=== PATIENT | male | born 1955 | race Caucasian/White ===

== ENCOUNTER 2023-08-09 12:56 | Observation (INO) | payer OTHER ==
--- OUTSIDE RECORDS SUMMARY | 2023-08-09 12:59 | XMS REPORT | Continuity of Care Document ---
Author Name Unknown Address [address] [place] [address] [address] [place] [address] [facility] Address [address] [facility] [address] [place] [address] Care Team Providers Care Aircraft Armorer Name Role Phone ANDREY Attending Clinician Unavailable ALEXANDRO Attending Clinician Unavailable Dixon Carias Attending Clinician [phone] Cezar_S_AH Attending Clinician Unavailable Aidan-Mbayo_A_AH Attending Clinician Unavailable ANTONIO_Gita Admitting Clinician Unavailable ALEXANDRO Admitting Clinician Unavailable Miller_S_AH Admitting Clinician Unavailable Aidan-Mbayo_A_AH Admitting Clinician Unavailable Payers Payer Name Policy Type Policy Number Effective Date Expirati on Date Source [employer] [place] (MEDICARE REPLACEMENT/ADVANT AGE - HMO) [id number] 2019 00:00:00 [employer] [place]IC[place] REPLACEMENT/ADVANT AGE - HMO) [id number] 2019 00:00:00 Problems Condition Name Condition Details Condition Category Status Onset Date Resolution Date Last Treatment Date Treating Clinician Comments Source Cataract Cataract Problem Active 2022-07 1-09 00:00: 00 [facility] Pain of right knee joint Pain of Right Knee Joint Problem Active 2022-07 0-31 00:00: 00 [facility] Prediabete s Prediabete s Problem Active 2022-07 0-24 00:00: 00 [facility] Nocturia due to benign prostatic hypertroph y Nocturia Due to Benign Prostatic Hypertroph y Problem Active 2020-07 0-15 00:00: 00 [facility] Mixed hyperlipid emia Mixed Hyperlipid emia Problem Active 4-05 00:00: 00 [facility] Type 2 diabetes mellitus without complicati on Type 2 Diabetes Mellitus without Complicati on Problem Active 2019-07 0 00:00: 00 [facility] Anxiety Anxiety Problem Active 2019-07 0 00:00: 00 [facility] Nicotine dependence Nicotine Dependence Problem Active 2019-07 0 00:00: 00 [facility] Essential hypertensi on Essential Hypertensi on Problem Active 2019-07 0 00:00: 00 [facility] Chronic obstructiv e lung disease Chronic Obstructiv e Lung Disease Problem Active 2019-07 0 00:00: 00 [facility] Mixed anxiety and depressive disorder Mixed Anxiety and Depressive Disorder Problem Active 9 00:00: 00 [facility] Essential hypertensi on Essential Hypertensi on Problem Active 12-26 00:00: 00 [facility] Diabetic peripheral neuropathy Diabetic Peripheral Neuropathy Problem Active 2018-07 00:00: 00 [facility] Chronic obstructiv e lung disease Chronic Obstructiv e Lung Disease Problem Active 2018-07 00:00: 00 [facility] Arthritis Arthritis Problem Active 2018-07 00:00: 00 [facility] Allergies, Adverse Reactions, Alerts Allergy Name Allergy Type Status Severity Reaction(s) Onset Date Inactive Date Treating Clinician Comments Source [facility] INS Allergy to substanc e Active [facility] Social History Smoking Status Start Date Stop Date Source Heavy Tobacco Smoker [facility] Light Tobacco Smoker [facility] Medications Ordered Medication Name Filled Medication Name Start Date Stop Date Current Medication? Ordering Clinician Indication Dosage Frequency Signature (SIG) Comments Components Source albuterol sulfate 2.5 mg/3 mL (0.083 %) solution for nebulizatio n INHALE 2.5 MG (1 VIAL) 4 TIMES A DAY BY NEBULIZATIO N ROUTE NEEDED. albuterol sulfate 2.5 mg/3 mL (0.083 %) solution for nebulizatio n INHALE 2.5 MG (1 VIAL) 4 TIMES A DAY BY NEBULIZATIO N ROUTE NEEDED. No albuterol sulfate 2.5 mg/3 mL (0.083 %) solution for nebulizati on INHALE 2.5 MG (1 VIAL) 4 TIMES A DAY BY NEBULIZATI ON ROUTE NEEDED. [facility] albuterol sulfate HFA 90 mcg/actuati on aerosol inhaler INHALE 2 PUFFS BY MOUTH EVERY 6 HOURS NEEDED albuterol sulfate HFA 90 mcg/actuati on aerosol inhaler INHALE 2 PUFFS BY MOUTH EVERY 6 HOURS NEEDED No albuterol sulfate HFA 90 mcg/actuat ion aerosol inhaler INHALE 2 PUFFS BY MOUTH EVERY [address] [facility] atorvastati n 20 mg tablet TAKE 1 TABLET BY MOUTH EVERY DAY atorvastati n 20 mg tablet TAKE 1 TABLET BY MOUTH EVERY DAY No atorvastat in 20 mg tablet TAKE 1 TABLET BY MOUTH EVERY DAY [facility] ipratropium bromide 0.02 % solution for inhalation TAKE NEBULIZER TREATMENT DIRECTED EVERY 6 HOURS NEEDED ipratropium bromide 0.02 % solution for inhalation TAKE NEBULIZER TREATMENT DIRECTED EVERY 6 HOURS NEEDED No ipratropiu m bromide 0.02 % solution for inhalation TAKE NEBULIZER TREATMENT DIRECTED EVERY [address] [facility] losartan 50 mg tablet TAKE 1 TABLET BY MOUTH EVERY DAY losartan 50 mg tablet TAKE 1 TABLET BY MOUTH EVERY DAY No losartan 50 mg tablet TAKE 1 TABLET BY MOUTH EVERY DAY [facility] tamsulosin 0.4 mg capsule TAKE 1 CAPSULE BY MOUTH EVERY DAY tamsulosin 0.4 mg capsule TAKE 1 CAPSULE BY MOUTH EVERY DAY No tamsulosin 0.4 mg capsule TAKE 1 CAPSULE BY MOUTH EVERY DAY [facility] venlafaxine ER 75 mg capsule,ext ended release 24 hr TAKE 1 CAPSULE BY MOUTH EVERY DAY venlafaxine ER 75 mg capsule,ext ended release 24 hr TAKE 1 CAPSULE BY MOUTH EVERY DAY No venlafaxin e ER 75 mg capsule,ex tended release 24 hr TAKE 1 CAPSULE BY MOUTH EVERY DAY [facility] albuterol sulfate 2.5 mg/3 mL (0.083 %) solution for nebulizatio n INHALE 2.5 MG (1 VIAL) 4 TIMES A DAY BY NEBULIZATIO N ROUTE NEEDED. albuterol sulfate 2.5 mg/3 mL (0.083 %) solution for nebulizatio n INHALE 2.5 MG (1 VIAL) 4 TIMES A DAY BY NEBULIZATIO N ROUTE NEEDED. No albuterol sulfate 2.5 mg/3 mL (0.083 %) solution for nebulizati on INHALE 2.5 MG (1 VIAL) 4 TIMES A DAY BY NEBULIZATI ON ROUTE NEEDED. [facility] albuterol sulfate HFA 90 mcg/actuati on aerosol inhaler INHALE 2 PUFFS BY MOUTH EVERY 6 HOURS NEEDED albuterol sulfate HFA 90 mcg/actuati on aerosol inhaler INHALE 2 PUFFS BY MOUTH EVERY 6 HOURS NEEDED No albuterol sulfate HFA 90 mcg/actuat ion aerosol inhaler INHALE 2 PUFFS BY MOUTH EVERY [address] [facility] atorvastati n 20 mg tablet TAKE 1 TABLET BY MOUTH EVERY DAY atorvastati n 20 mg tablet TAKE 1 TABLET BY MOUTH EVERY DAY No atorvastat in 20 mg tablet TAKE 1 TABLET BY MOUTH EVERY DAY [facility] ipratropium bromide 0.02 % solution for inhalation TAKE NEBULIZER TREATMENT DIRECTED EVERY 6 HOURS NEEDED ipratropium bromide 0.02 % solution for inhalation TAKE NEBULIZER TREATMENT DIRECTED EVERY 6 HOURS NEEDED No ipratropiu m bromide 0.02 % solution for inhalation TAKE NEBULIZER TREATMENT DIRECTED EVERY [address] [facility] losartan 50 mg tablet TAKE 1 TABLET BY MOUTH EVERY DAY losartan 50 mg tablet TAKE 1 TABLET BY MOUTH EVERY DAY No losartan 50 mg tablet TAKE 1 TABLET BY MOUTH EVERY DAY [facility] tamsulosin 0.4 mg capsule TAKE 1 CAPSULE BY MOUTH EVERY DAY tamsulosin 0.4 mg capsule TAKE 1 CAPSULE BY MOUTH EVERY DAY No tamsulosin 0.4 mg capsule TAKE 1 CAPSULE BY MOUTH EVERY DAY [facility] venlafaxine ER 75 mg capsule,ext ended release 24 hr TAKE 1 CAPSULE BY MOUTH EVERY DAY venlafaxine ER 75 mg capsule,ext ended release 24 hr TAKE 1 CAPSULE BY MOUTH EVERY DAY No venlafaxin e ER 75 mg capsule,ex tended release 24 hr TAKE 1 CAPSULE BY MOUTH EVERY DAY [facility] albuterol sulfate 2.5 mg/3 mL (0.083 %) solution for nebulizatio n INHALE 2.5 MG (1 VIAL) 4 TIMES A DAY BY NEBULIZATIO N ROUTE NEEDED. albuterol sulfate 2.5 mg/3 mL (0.083 %) solution for nebulizatio n INHALE 2.5 MG (1 VIAL) 4 TIMES A DAY BY NEBULIZATIO N ROUTE NEEDED. No albuterol sulfate 2.5 mg/3 mL (0.083 %) solution for nebulizati on INHALE 2.5 MG (1 VIAL) 4 TIMES A DAY BY NEBULIZATI ON ROUTE NEEDED. [facility] albuterol sulfate HFA 90 mcg/actuati on aerosol inhaler INHALE 2 PUFFS BY MOUTH EVERY 6 HOURS NEEDED albuterol sulfate HFA 90 mcg/actuati on aerosol inhaler INHALE 2 PUFFS BY MOUTH EVERY 6 HOURS NEEDED No albuterol sulfate HFA 90 mcg/actuat ion aerosol inhaler INHALE 2 PUFFS BY MOUTH EVERY [address] [facility] atorvastati n 20 mg tablet TAKE 1 TABLET BY MOUTH EVERY DAY atorvastati n 20 mg tablet TAKE 1 TABLET BY MOUTH EVERY DAY No atorvastat in 20 mg tablet TAKE 1 TABLET BY MOUTH EVERY DAY [facility] ipratropium bromide 0.02 % solution for inhalation TAKE NEBULIZER TREATMENT DIRECTED EVERY 6 HOURS NEEDED ipratropium bromide 0.02 % solution for inhalation TAKE NEBULIZER TREATMENT DIRECTED EVERY 6 HOURS NEEDED No ipratropiu m bromide 0.02 % solution for inhalation TAKE NEBULIZER TREATMENT DIRECTED EVERY [address] [facility] losartan 50 mg tablet TAKE 1 TABLET BY MOUTH EVERY DAY losartan 50 mg tablet TAKE 1 TABLET BY MOUTH EVERY DAY No losartan 50 mg tablet TAKE 1 TABLET BY MOUTH EVERY DAY [facility] meloxicam 15 mg tablet TAKE 1 TABLET BY MOUTH EVERY DAY FOR 7 DAYS meloxicam 15 mg tablet TAKE 1 TABLET BY MOUTH EVERY DAY FOR 7 DAYS No meloxicam 15 mg tablet TAKE 1 TABLET BY MOUTH EVERY DAY FOR [address] [facility] methocarbam ol 500 mg tablet TAKE 2 TABLETS BY MOUTH 4 TIMES A DAY FOR 7 DAYS methocarbam ol 500 mg tablet TAKE 2 TABLETS BY MOUTH 4 TIMES A DAY FOR 7 DAYS No methocarba mol 500 mg tablet TAKE 2 TABLETS BY MOUTH 4 TIMES A DAY FOR [address] [facility] tamsulosin 0.4 mg capsule TAKE 1 CAPSULE BY MOUTH EVERY DAY tamsulosin 0.4 mg capsule TAKE 1 CAPSULE BY MOUTH EVERY DAY No tamsulosin 0.4 mg capsule TAKE 1 CAPSULE BY MOUTH EVERY DAY [facility] venlafaxine ER 75 mg capsule,ext ended release 24 hr TAKE 1 CAPSULE BY MOUTH EVERY DAY venlafaxine ER 75 mg capsule,ext ended release 24 hr TAKE 1 CAPSULE BY MOUTH EVERY DAY No venlafaxin e ER 75 mg capsule,ex tended release 24 hr TAKE 1 CAPSULE BY MOUTH EVERY DAY [facility] albuterol sulfate 2.5 mg/3 mL (0.083 %) solution for nebulizatio n INHALE 2.5 MG (1 VIAL) 4 TIMES A DAY BY NEBULIZATIO N ROUTE NEEDED. albuterol sulfate 2.5 mg/3 mL (0.083 %) solution for nebulizatio n INHALE 2.5 MG (1 VIAL) 4 TIMES A DAY BY NEBULIZATIO N ROUTE NEEDED. No albuterol sulfate 2.5 mg/3 mL (0.083 %) solution for nebulizati on INHALE 2.5 MG (1 VIAL) 4 TIMES A DAY BY NEBULIZATI ON ROUTE NEEDED. [facility] albuterol sulfate HFA 90 mcg/actuati on aerosol inhaler INHALE 2 PUFFS BY MOUTH EVERY 6 HOURS NEEDED albuterol sulfate HFA 90 mcg/actuati on aerosol inhaler INHALE 2 PUFFS BY MOUTH EVERY 6 HOURS NEEDED No albuterol sulfate HFA 90 mcg/actuat ion aerosol inhaler INHALE 2 PUFFS BY MOUTH EVERY [address] [facility] atorvastati n 20 mg tablet TAKE 1 TABLET BY MOUTH EVERY DAY atorvastati n 20 mg tablet TAKE 1 TABLET BY MOUTH EVERY DAY No atorvastat in 20 mg tablet TAKE 1 TABLET BY MOUTH EVERY DAY [facility] celecoxib 100 mg capsule Take 1 capsule twice a day by oral route with meals for 10 days. For right knee pain. celecoxib 100 mg capsule Take 1 capsule twice a day by oral route with meals for 10 days. For right knee pain. No 1capsul e(s) BID celecoxib 100 mg capsule Take 1 capsule twice a day by oral route with meals for 10 days. For right knee pain. [facility] ipratropium bromide 0.02 % solution for inhalation TAKE NEBULIZER TREATMENT DIRECTED EVERY 6 HOURS NEEDED ipratropium bromide 0.02 % solution for inhalation TAKE NEBULIZER TREATMENT DIRECTED EVERY 6 HOURS NEEDED No ipratropiu m bromide 0.02 % solution for inhalation TAKE NEBULIZER TREATMENT DIRECTED EVERY [address] [facility] losartan 50 mg tablet TAKE 1 TABLET BY MOUTH EVERY DAY losartan 50 mg tablet TAKE 1 TABLET BY MOUTH EVERY DAY No losartan 50 mg tablet TAKE 1 TABLET BY MOUTH EVERY DAY [facility] tamsulosin 0.4 mg capsule TAKE 1 CAPSULE BY MOUTH EVERY DAY tamsulosin 0.4 mg capsule TAKE 1 CAPSULE BY MOUTH EVERY DAY No tamsulosin 0.4 mg capsule TAKE 1 CAPSULE BY MOUTH EVERY DAY [facility] venlafaxine ER 75 mg capsule,ext ended release 24 hr TAKE 1 CAPSULE BY MOUTH EVERY DAY venlafaxine ER 75 mg capsule,ext ended release 24 hr TAKE 1 CAPSULE BY MOUTH EVERY DAY No venlafaxin e ER 75 mg capsule,ex tended release 24 hr TAKE 1 CAPSULE BY MOUTH EVERY DAY [facility] albuterol sulfate 2.5 mg/3 mL (0.083 %) solution for nebulizatio n INHALE 2.5 MG (1 VIAL) 4 TIMES A DAY BY NEBULIZATIO N ROUTE NEEDED. albuterol sulfate 2.5 mg/3 mL (0.083 %) solution for nebulizatio n INHALE 2.5 MG (1 VIAL) 4 TIMES A DAY BY NEBULIZATIO N ROUTE NEEDED. No albuterol sulfate 2.5 mg/3 mL (0.083 %) solution for nebulizati on INHALE 2.5 MG (1 VIAL) 4 TIMES A DAY BY NEBULIZATI ON ROUTE NEEDED. [facility] albuterol sulfate HFA 90 mcg/actuati on aerosol inhaler INHALE 2 PUFFS BY MOUTH EVERY 6 HOURS NEEDED albuterol sulfate HFA 90 mcg/actuati on aerosol inhaler INHALE 2 PUFFS BY MOUTH EVERY 6 HOURS NEEDED No albuterol sulfate HFA 90 mcg/actuat ion aerosol inhaler INHALE 2 PUFFS BY MOUTH EVERY [address] [facility] atorvastati n 20 mg tablet TAKE 1 TABLET BY MOUTH EVERY DAY atorvastati n 20 mg tablet TAKE 1 TABLET BY MOUTH EVERY DAY No atorvastat in 20 mg tablet TAKE 1 TABLET BY MOUTH EVERY DAY [facility] celecoxib 100 mg capsule Take 1 capsule twice a day by oral route with meals for 10 days. For right knee pain. celecoxib 100 mg capsule Take 1 capsule twice a day by oral route with meals for 10 days. For right knee pain. No 1capsul e(s) BID celecoxib 100 mg capsule Take 1 capsule twice a day by oral route with meals for 10 days. For right knee pain. [facility] ipratropium bromide 0.02 % solution for inhalation TAKE NEBULIZER TREATMENT DIRECTED EVERY 6 HOURS NEEDED ipratropium bromide 0.02 % solution for inhalation TAKE NEBULIZER TREATMENT DIRECTED EVERY 6 HOURS NEEDED No ipratropiu m bromide 0.02 % solution for inhalation TAKE NEBULIZER TREATMENT DIRECTED EVERY [address] [facility] losartan 50 mg tablet TAKE 1 TABLET BY MOUTH EVERY DAY losartan 50 mg tablet TAKE 1 TABLET BY MOUTH EVERY DAY No losartan 50 mg tablet TAKE 1 TABLET BY MOUTH EVERY DAY [facility] tamsulosin 0.4 mg capsule TAKE 1 CAPSULE BY MOUTH EVERY DAY tamsulosin 0.4 mg capsule TAKE 1 CAPSULE BY MOUTH EVERY DAY No tamsulosin 0.4 mg capsule TAKE 1 CAPSULE BY MOUTH EVERY DAY [facility] venlafaxine ER 75 mg capsule,ext ended release 24 hr TAKE 1 CAPSULE BY MOUTH EVERY DAY venlafaxine ER 75 mg capsule,ext ended release 24 hr TAKE 1 CAPSULE BY MOUTH EVERY DAY No venlafaxin e ER 75 mg capsule,ex tended release 24 hr TAKE 1 CAPSULE BY MOUTH EVERY DAY [facility] albuterol sulfate 2.5 mg/3 mL (0.083 %) solution for nebulizatio n INHALE 2.5 MG (1 VIAL) 4 TIMES A DAY BY NEBULIZATIO N ROUTE NEEDED. albuterol sulfate 2.5 mg/3 mL (0.083 %) solution for nebulizatio n INHALE 2.5 MG (1 VIAL) 4 TIMES A DAY BY NEBULIZATIO N ROUTE NEEDED. No albuterol sulfate 2.5 mg/3 mL (0.083 %) solution for nebulizati on INHALE 2.5 MG (1 VIAL) 4 TIMES A DAY BY NEBULIZATI ON ROUTE NEEDED. [facility] albuterol sulfate HFA 90 mcg/actuati on aerosol inhaler INHALE 2 PUFFS BY MOUTH EVERY 6 HOURS NEEDED albuterol sulfate HFA 90 mcg/actuati on aerosol inhaler INHALE 2 PUFFS BY MOUTH EVERY 6 HOURS NEEDED No albuterol sulfate HFA 90 mcg/actuat ion aerosol inhaler INHALE 2 PUFFS BY MOUTH EVERY [address] [facility] atorvastati n 20 mg tablet TAKE 1 TABLET BY MOUTH EVERY DAY atorvastati n 20 mg tablet TAKE 1 TABLET BY MOUTH EVERY DAY No atorvastat in 20 mg tablet TAKE 1 TABLET BY MOUTH EVERY DAY [facility] celecoxib 100 mg capsule Take 1 capsule twice a day by oral route with meals for 10 days. celecoxib 100 mg capsule Take 1 capsule twice a day by oral route with meals for 10 days. No celecoxib 100 mg capsule Take 1 capsule twice a day by oral route with meals for [address] [facility] ipratropium bromide 0.02 % solution for inhalation TAKE NEBULIZER TREATMENT DIRECTED EVERY 6 HOURS NEEDED ipratropium bromide 0.02 % solution for inhalation TAKE NEBULIZER TREATMENT DIRECTED EVERY 6 HOURS NEEDED No ipratropiu m bromide 0.02 % solution for inhalation TAKE NEBULIZER TREATMENT DIRECTED EVERY [address] [facility] losartan 50 mg tablet TAKE 1 TABLET BY MOUTH EVERY DAY losartan 50 mg tablet TAKE 1 TABLET BY MOUTH EVERY DAY No losartan 50 mg tablet TAKE 1 TABLET BY MOUTH EVERY DAY [facility] tamsulosin 0.4 mg capsule TAKE 1 CAPSULE BY MOUTH EVERY DAY tamsulosin 0.4 mg capsule TAKE 1 CAPSULE BY MOUTH EVERY DAY No tamsulosin 0.4 mg capsule TAKE 1 CAPSULE BY MOUTH EVERY DAY [facility] venlafaxine ER 75 mg capsule,ext ended release 24 hr TAKE 1 CAPSULE BY MOUTH EVERY DAY venlafaxine ER 75 mg capsule,ext ended release 24 hr TAKE 1 CAPSULE BY MOUTH EVERY DAY No venlafaxin e ER 75 mg capsule,ex tended release 24 hr TAKE 1 CAPSULE BY MOUTH EVERY DAY [facility] albuterol sulfate 2.5 mg/3 mL (0.083 %) solution for nebulizatio n Inhale 2.5 mg 4 times a day by nebulizatio n route as needed. albuterol sulfate 2.5 mg/3 mL (0.083 %) solution for nebulizatio n Inhale 2.5 mg 4 times a day by nebulizatio n route as needed. No 2.5mg QID albuterol sulfate 2.5 mg/3 mL (0.083 %) solution for nebulizati on Inhale 2.5 mg 4 times a day by nebulizati on route as needed. [facility] albuterol sulfate HFA 90 mcg/actuati on aerosol inhaler 2 puffs every 6 hours as needed albuterol sulfate HFA 90 mcg/actuati on aerosol inhaler 2 puffs every 6 hours as needed No albuterol sulfate HFA 90 mcg/actuat ion aerosol inhaler 2 puffs every [address] [facility] ipratropium bromide 0.02 % solution for inhalation Take nebulizer treatment every 6 hours as needed ipratropium bromide 0.02 % solution for inhalation Take nebulizer treatment every 6 hours as needed No ipratropiu m bromide 0.02 % solution for inhalation Take nebulizer treatment every [address] [facility] losartan 50 mg tablet TAKE 1 TABLET BY MOUTH EVERY DAY losartan 50 mg tablet TAKE 1 TABLET BY MOUTH EVERY DAY No losartan 50 mg tablet TAKE 1 TABLET BY MOUTH EVERY DAY [facility] Symbicort 80 mcg-4.5 mcg/actuati on HFA aerosol inhaler INHALE 2 PUFFS BY MOUTH EVERY 12 HOURS Symbicort 80 mcg-4.5 mcg/actuati on HFA aerosol inhaler INHALE 2 PUFFS BY MOUTH EVERY 12 HOURS No Symbicort 80 mcg-4.5 mcg/actuat ion HFA aerosol inhaler INHALE 2 PUFFS BY MOUTH EVERY [address] [facility] venlafaxine ER 75 mg capsule,ext ended release 24 hr TAKE 1 CAPSULE BY MOUTH EVERY DAY venlafaxine ER 75 mg capsule,ext ended release 24 hr TAKE 1 CAPSULE BY MOUTH EVERY DAY No venlafaxin e ER 75 mg capsule,ex tended release 24 hr TAKE 1 CAPSULE BY MOUTH EVERY DAY [facility] albuterol sulfate 2.5 mg/3 mL (0.083 %) solution for nebulizatio n INHALE 2.5 MG (1 VIAL) 4 TIMES A DAY BY NEBULIZATIO N ROUTE NEEDED. albuterol sulfate 2.5 mg/3 mL (0.083 %) solution for nebulizatio n INHALE 2.5 MG (1 VIAL) 4 TIMES A DAY BY NEBULIZATIO N ROUTE NEEDED. No albuterol sulfate 2.5 mg/3 mL (0.083 %) solution for nebulizati on INHALE 2.5 MG (1 VIAL) 4 TIMES A DAY BY NEBULIZATI ON ROUTE NEEDED. [facility] albuterol sulfate HFA 90 mcg/actuati on aerosol inhaler INHALE 2 PUFFS BY MOUTH EVERY 6 HOURS NEEDED albuterol sulfate HFA 90 mcg/actuati on aerosol inhaler INHALE 2 PUFFS BY MOUTH EVERY 6 HOURS NEEDED No albuterol sulfate HFA 90 mcg/actuat ion aerosol inhaler INHALE 2 PUFFS BY MOUTH EVERY [address] [facility] atorvastati n 20 mg tablet TAKE 1 TABLET BY MOUTH EVERY DAY atorvastati n 20 mg tablet TAKE 1 TABLET BY MOUTH EVERY DAY No atorvastat in 20 mg tablet TAKE 1 TABLET BY MOUTH EVERY DAY [facility] ipratropium bromide 0.02 % solution for inhalation TAKE NEBULIZER TREATMENT DIRECTED EVERY 6 HOURS NEEDED ipratropium bromide 0.02 % solution for inhalation TAKE NEBULIZER TREATMENT DIRECTED EVERY 6 HOURS NEEDED No ipratropiu m bromide 0.02 % solution for inhalation TAKE NEBULIZER TREATMENT DIRECTED EVERY [address] [facility] losartan 50 mg tablet TAKE 1 TABLET BY MOUTH EVERY DAY losartan 50 mg tablet TAKE 1 TABLET BY MOUTH EVERY DAY No losartan 50 mg tablet TAKE 1 TABLET BY MOUTH EVERY DAY [facility] Symbicort 80 mcg-4.5 mcg/actuati on HFA aerosol inhaler INHALE 2 PUFFS BY MOUTH EVERY 12 HOURS Symbicort 80 mcg-4.5 mcg/actuati on HFA aerosol inhaler INHALE 2 PUFFS BY MOUTH EVERY 12 HOURS No Symbicort 80 mcg-4.5 mcg/actuat ion HFA aerosol inhaler INHALE 2 PUFFS BY MOUTH EVERY [address] [facility] tamsulosin 0.4 mg capsule Take 1 capsule every day by oral route. tamsulosin 0.4 mg capsule Take 1 capsule every day by oral route. No 1capsul e(s) Q1D tamsulosin 0.4 mg capsule Take 1 capsule every day by oral route. [facility] venlafaxine ER 75 mg capsule,ext ended release 24 hr TAKE 1 CAPSULE BY MOUTH EVERY DAY venlafaxine ER 75 mg capsule,ext ended release 24 hr TAKE 1 CAPSULE BY MOUTH EVERY DAY No venlafaxin e ER 75 mg capsule,ex tended release 24 hr TAKE 1 CAPSULE BY MOUTH EVERY DAY [facility] albuterol sulfate 2.5 mg/3 mL (0.083 %) solution for nebulizatio n INHALE 2.5 MG (1 VIAL) 4 TIMES A DAY BY NEBULIZATIO N ROUTE NEEDED. albuterol sulfate 2.5 mg/3 mL (0.083 %) solution for nebulizatio n INHALE 2.5 MG (1 VIAL) 4 TIMES A DAY BY NEBULIZATIO N ROUTE NEEDED. No albuterol sulfate 2.5 mg/3 mL (0.083 %) solution for nebulizati on INHALE 2.5 MG (1 VIAL) 4 TIMES A DAY BY NEBULIZATI ON ROUTE NEEDED. [facility] albuterol sulfate HFA 90 mcg/actuati on aerosol inhaler INHALE 2 PUFFS BY MOUTH EVERY 6 HOURS NEEDED albuterol sulfate HFA 90 mcg/actuati on aerosol inhaler INHALE 2 PUFFS BY MOUTH EVERY 6 HOURS NEEDED No albuterol sulfate HFA 90 mcg/actuat ion aerosol inhaler INHALE 2 PUFFS BY MOUTH EVERY [address] [facility] atorvastati n 20 mg tablet TAKE 1 TABLET BY MOUTH EVERY DAY atorvastati n 20 mg tablet TAKE 1 TABLET BY MOUTH EVERY DAY No atorvastat in 20 mg tablet TAKE 1 TABLET BY MOUTH EVERY DAY [facility] ID NOW COVID-19 Test Kit TEST DIRECTED TODAY ID NOW COVID-19 Test Kit TEST DIRECTED TODAY No ID NOW COVID-19 Test Kit TEST DIRECTED TODAY [facility] ipratropium bromide 0.02 % solution for inhalation TAKE NEBULIZER TREATMENT DIRECTED EVERY 6 HOURS NEEDED ipratropium bromide 0.02 % solution for inhalation TAKE NEBULIZER TREATMENT DIRECTED EVERY 6 HOURS NEEDED No ipratropiu m bromide 0.02 % solution for inhalation TAKE NEBULIZER TREATMENT DIRECTED EVERY [address] [facility] losartan 50 mg tablet TAKE 1 TABLET BY MOUTH EVERY DAY losartan 50 mg tablet TAKE 1 TABLET BY MOUTH EVERY DAY No losartan 50 mg tablet TAKE 1 TABLET BY MOUTH EVERY DAY [facility] tamsulosin 0.4 mg capsule TAKE 1 CAPSULE BY MOUTH EVERY DAY tamsulosin 0.4 mg capsule TAKE 1 CAPSULE BY MOUTH EVERY DAY No tamsulosin 0.4 mg capsule TAKE 1 CAPSULE BY MOUTH EVERY DAY [facility] venlafaxine ER 75 mg capsule,ext ended release 24 hr TAKE 1 CAPSULE BY MOUTH EVERY DAY venlafaxine ER 75 mg capsule,ext ended release 24 hr TAKE 1 CAPSULE BY MOUTH EVERY DAY No venlafaxin e ER 75 mg capsule,ex tended release 24 hr TAKE 1 CAPSULE BY MOUTH EVERY DAY [facility] losartan 50 mg tablet Take 1 tablet every day by oral route. losartan 50 mg tablet Take 1 tablet every day by oral route. No 1 Q1D losartan 50 mg tablet Take 1 tablet every day by oral route. [facility] ProAir HFA 90 mcg/actuati on aerosol inhaler Inhale 2 puffs every 4 hours by inhalation route. ProAir HFA 90 mcg/actuati on aerosol inhaler Inhale 2 puffs every 4 hours by inhalation route. No 2puff(s ) Q4H ProAir HFA 90 mcg/actuat ion aerosol inhaler Inhale 2 puffs every 4 hours by inhalation route. [facility] venlafaxine 75 mg tablet Take 1 tablet twice a day by oral route. venlafaxine 75 mg tablet Take 1 tablet twice a day by oral route. No 1 BID venlafaxin e 75 mg tablet Take 1 tablet twice a day by oral route. [facility] Vital Signs Vital Name Observation Time Observation Value Comments S ource BP Systolic 2023-06-04 00:00:00 124 mm[Hg] [facility] Body Weight 2023-06-04 00:00:00 2992 [oz_av] [facility] Height 2023-06-04 00:00:00 68 [in_i] [facility] BP Diastolic 2023-06-04 00:00:00 74 mm[Hg] [facility] BMI (Body Mass Index) 2023-06-04 00:00:00 28.4 kg/m2 [facility] BP Systolic 2023-05-26 00:00:00 148 mm[Hg] [facility] Height 2023-05-26 00:00:00 68 [in_i] [facility] BMI (Body Mass Index) 2023-05-26 00:00:00 29 kg/m2 [facility] Body Weight 2023-05-26 00:00:00 3056 [oz_av] [facility] BP Diastolic 2023-05-26 00:00:00 80 mm[Hg] [facility] BP Diastolic 2023-01-01 00:00:00 82 mm[Hg] [facility] Height 2023-01-01 00:00:00 68 [in_i] [facility] BMI (Body Mass Index) 2023-01-01 00:00:00 28.4 kg/m2 [facility] BP Systolic 2023-01-01 00:00:00 138 mm[Hg] [facility] Body Weight 2023-01-01 00:00:00 2992 [oz_av] [facility] BP Diastolic 2022-11-13 00:00:00 78 mm[Hg] [facility] Height 2022-11-13 00:00:00 68 [in_i] [facility] BMI (Body Mass Index) 2022-11-13 00:00:00 28.3 kg/m2 [facility] BP Systolic 2022-11-13 00:00:00 132 mm[Hg] [facility] Body Weight 2022-11-13 00:00:00 2976 [oz_av] [facility] BP Diastolic 2022-05-19 00:00:00 80 mm[Hg] [facility] Height 2022-05-19 00:00:00 68 [in_i] [facility] BMI (Body Mass Index) 2022-05-19 00:00:00 29.5 kg/m2 [facility] BP Systolic 2022-05-19 00:00:00 124 mm[Hg] [facility] Body Weight 2022-05-19 00:00:00 3104 [oz_av] [facility] BP Diastolic 2021-11-21 00:00:00 80 mm[Hg] [facility] Height 2021-11-21 00:00:00 68 [in_i] [facility] BMI (Body Mass Index) 2021-11-21 00:00:00 30 kg/m2 [facility] BP Systolic 2021-11-21 00:00:00 132 mm[Hg] [facility] Body Weight 2021-11-21 00:00:00 3152 [oz_av] [facility] BP Diastolic 2021-05-10 00:00:00 96 mm[Hg] [facility] Height 2021-05-10 00:00:00 68 [in_i] [facility] BMI (Body Mass Index) 2021-05-10 00:00:00 30 kg/m2 [facility] BP Systolic 2021-05-10 00:00:00 164 mm[Hg] [facility] Body Weight 2021-05-10 00:00:00 3152 [oz_av] [facility] BP Diastolic 2020-10-25 00:00:00 92 mm[Hg] [facility] Height 2020-10-25 00:00:00 68 [in_i] [facility] BMI (Body Mass Index) 2020-10-25 00:00:00 31.2 kg/m2 [facility] BP Systolic 2020-10-25 00:00:00 140 mm[Hg] [facility] Body Weight 2020-10-25 00:00:00 3280 [oz_av] [facility] Height 2020-10-11 00:00:00 68 [in_i] [facility] Height 2020-04-26 00:00:00 68 [in_i] [facility] BMI (Body Mass Index) 2020-04-26 00:00:00 28.7 kg/m2 [facility] Body Weight 2020-04-26 00:00:00 189 [lb_av] [facility] Procedures Procedure Date / Time Performed Performing Clinicia n Source XR, knee, 3 view 2023-01-01 00:00:00 [facility] Knee Surgery [facility] Plan of Care Planned Activity Planned Date Details Comments Source Diagnostic Test Pending 2023-05-26 00:00:00 HbA1c (hemoglobin A1c), blood [code = HbA1c (hemoglobin A1c), blood] [facility] Diagnostic Test Pending 2023-05-26 00:00:00 CMP, serum or plasma [code = CMP, serum or plasma] [facility] Future Scheduled Test Improved B P control. Improve diet, encourage aerobic excercise. [code = Improved BP control. Improve diet, encourage aerobic excercise.] [facility] Instructions [facility] Encounters Start Date/Time End Date/Time Encounter Type Admission Type Attending Clinicians Care Facility Care Department Encounter ID Source 2023-06-04 00:00:00 2023-06-04 00:00:00 Outpatient BRADEN_F [id number] 2023-06-04 00:00:00 2023-06-04 00:00:00 SAUMYA Akhtar-C: [address], [place] [address] , [address] [facility], DR. CARIAS [id number] [facility] 2023-05-26 00:00:00 2023-05-26 00:00:00 Outpatient ERICKSON_R [facility] [id number] [facility] 2023-05-26 00:00:00 2023-05-26 00:00:00 Outpatient ERICKSON_R [facility] [id number] [facility] 2023-05-26 00:00:00 2023-05-26 00:00:00 SAUMYA Akhtar-C: [address], [place] [address] , [address] [facility], DR. CARIAS [id number] [facility] 2023-01-01 00:00:00 2023-01-01 00:00:00 SAUMYA Akhtar-C: [address], [place] [address] , Ph. [facility], DR. CARIAS [id number] [facility] 2022-11-13 00:00:00 2022-11-13 00:00:00 Dixon Carias, DO: [address], [place] [address] , [facility] [id number] [facility] 2022-05-19 00:00:00 2022-05-19 00:00:00 Outpatient ERICKSON_R [facility] [id number] [facility] 2022-05-19 00:00:00 2022-05-19 00:00:00 Outpatient ERICKSON_R [facility] [id number] [facility] 2022-05-19 00:00:00 2022-05-19 00:00:00 Outpatient ERICKSON_R [facility] [id number] [facility] 2022-05-19 00:00:00 2022-05-19 00:00:00 Dixon Carias, DO: [address] [place] [address] , Ph[address] [facility], DR. CARIAS [id number] [facility] 2021-11-21 12:45:00 2021-11-21 12:45:00 Outpatient ERICKSON_R [facility] [id number] [facility] 2021-11-21 00:00:00 2021-11-21 00:00:00 Outpatient Dixon Carias [facility] [id number] 2021-11-21 00:00:00 2021-11-21 00:00:00 Dixon Carias, DO: [address] [place] [address] , Ph. [facility], DR. CARIAS [id number] [facility] 2021-05-10 11:02:00 2021-05-10 11:02:00 Outpatient ERICKSON_R [facility] [id number] [facility] 2021-05-10 11:02:00 2021-05-10 11:02:00 Outpatient ERICKSON_R [facility] [id number] 2021-05-10 00:00:00 2021-05-10 00:00:00 Outpatient Dixon Carias [facility] [id number] 2021-05-10 00:00:00 2021-05-10 00:00:00 Dixon Carias, DO: [address], [place] [address] , Ph. [facility], DR. CARIAS [id number] [facility] 2021-01-11 01:38:00 2021-01-11 01:38:00 Outpatient Miller_S_AH VFP VFP [id number] [facility] e 2020-12-19 04:49:00 2020-12-19 04:49:00 Outpatient ERICKSON_R [facility] [id number] [facility] 2020-10-27 10:29:00 2020-10-27 10:29:00 Outpatient Aidan-Mbayo _A_AH VFP VFP [id number] [facility] 2020-10-27 10:29:00 2020-10-27 10:29:00 Outpatient Aidan-Mbayo _A_AH VFP VFP [id number] [facility] 2020-10-27 10:29:00 2020-10-27 10:29:00 Outpatient Aidan-Mbayo _A_AH VFP VFP [id number] [facility] 2020-10-25 11:12:00 2020-10-25 11:12:00 Outpatient ERICKSON_R [facility] [id number] [facility] 2020-10-25 00:00:00 2020-10-25 00:00:00 Dixon Carias, DO: [address], [facility] [address], [place] [address] , Ph. [facility] [place] [facility], DR. CARIAS [id number] [facility] 2020-10-25 00:00:00 2020-10-25 00:00:00 Outpatient Dixon Carias [facility] [id number] 2020-10-15 09:20:00 2020-10-15 09:20:00 Outpatient Aidan-Mbayo _A_AH VFP VFP [id number] [facility] 2020-10-11 00:00:00 2020-10-11 00:00:00 Yenifer fulton UTILIZATION MANAGEMENT UM NURSE: [address] [facility], [facility] [address], [place] [address] , Ph. VFP [place] - [facility] - [email or web address]_ [place] [facility] [id number] [facility] 2020-05-23 10:08:00 2020-05-23 10:08:00 Outpatient Aidan-Mbayo _A_AH VFP VFP [id number] [facility] 2020-05-02 11:40:00 2020-05-02 11:40:00 Outpatient Aidan-Mbayo _A_AH VFP VFP [id number] [facility] 2020-04-26 00:00:00 2020-04-26 00:00:00 Yenifer fulton UTILIZATION MANAGEMENT UM NURSE: [address], [address], [place] [address] , Ph. [facility] [place] - [facility] - [email or web address]_ [place] [facility] [id number] [facility] 2019-09-14 07:15:00 2019-09-14 07:15:00 Outpatient Aidan-Mbayo _A_AH VFP VFP [id number] [facility]
[2023-08-09] MEDS ORDERED: ASPIRIN 81 MG CHEWABLE TABLET ONE (13:30)
[2023-08-09 13:57] LABS: Protime INR 1.18
[2023-08-09 13:58] LABS: Hematocrit 38.1 % (39.6-49.0); Lymphocytes % 19.3 % (15.3-44.8); MCV 90.7 fL (80-100); MPV 7.6 fL (7.6-11.3); Platelets 262 thou/uL (152-406)
--- NOTE | 2023-08-09 14:06 | RAD REPORT ---
EXAM DESCRIPTION: Naun Single View08/09/2023 1:46 pm CLINICAL HISTORY: Shortness of breath COMPARISON: 2017 FINDINGS: The lungs appear clear of acute infiltrate. The heart is normal size IMPRESSION: No acute abnormalities displayed
[2023-08-09 14:08] LABS: Albumin 3.7 g/dL (3.4-5.0); Bilirubin Direct 0.1 mg/dL (0-0.2); Bilirubin Indirect, Calculated 0.3 mg/dL (0.2-0.8); Bilirubin Total 0.4 mg/dL (0.2-1.0); Magnesium 2.2 mg/dL (1.6-2.4); Potassium 3.9 mEq/L (3.5-5.1); Protein, Total 7.5 g/dL (6.4-8.2); Troponin High Sensitivity 11.5 pg/mL (<58.9)
[2023-08-09] MEDS ORDERED: dexAMETHasone 10 MG/ML VIAL ONE (14:21)
[2023-08-09] MEDS ORDERED: ALBUTEROL 2.5 MG/3 ML NEB SOL ONE (14:21)
--- NOTE | 2023-08-09 14:45 | ER ---
Nurse's Notes [facility] Name: Oneal Llanes Age: 67 yrs Sex: Male : 1955 Arrival Date: 08/09/2023 Time: 12:56 Bed 7 Private MD: Diagnosis: Presentation: 08/09 13:02 Chief complaint: Patient states: Shortness of breath X2 weeks. Pt states that he has cm10 been using his inhaler but hasn't been getting better. Pt denies chest pain. Coronavirus screen: Vaccine status: Patient reports receiving the 1st dose of the Covid vaccine. Client denies travel out of the [place] in the last 14 days. Ebola Screen: Patient denies travel to an Ebola-affected area in the 21 days before illness onset. No symptoms or risks identified at this time. Initial Sepsis Screen: Does the patient meet any 2 criteria? No. Patient's initial sepsis screen is negative. Does the patient have a suspected source of infection? No. Patient's initial sepsis screen is negative. Risk Assessment: Do you want to hurt yourself or someone else? Patient reports no desire to harm self or others. Onset of symptoms was August 09, 2023. 13:02 Method Of Arrival: Ambulatory cm10 13:02 Acuity: VITO 3 cm10 Historical: - Allergies: 13:03 PENICILLINS; cm10 - PMHx: 13:03 COPD; Hypertensive disorder; Hypercholesterolemia; cm10 - Immunization history:: Adult Immunizations up to date. - Social history:: Smoking status: Patient reports the use of cigarette tobacco products, smokes one pack cigarettes per day. Screenin:16 [facility] ED Fall Risk Assessment (Adult) History of falling in the last 3 months, ld1 including since admission No falls in past 3 months (0 pts). Abuse screen: Denies threats or abuse. Denies injuries from another. Nutritional screening: No deficits noted. Tuberculosis screening: No symptoms or risk factors identified. Assessment: 13:16 General: Appears in no apparent distress. comfortable, Behavior is calm, cooperative, ld1 appropriate for age. Pain: Complains of pain in anterior aspect of left upper chest and left breast Pain does not radiate. Pain currently is 0 out of 10 on a pain scale. at worst was 8 out of 10 on a pain scale. Quality of pain is described as sharp, shooting, throbbing, Pain began 2 hours ago. Is intermittent. Neuro: Level of Consciousness is awake, alert, obeys commands, Oriented to person, place, time, situation. Cardiovascular: Capillary refill < 3 seconds Patient's skin is warm and dry. Rhythm is sinus rhythm. Respiratory: Airway is patent Respiratory effort is even, unlabored. GI: Abdomen is round non-distended. : No signs and/or symptoms were reported regarding the genitourinary system. EENT: No signs and/or symptoms were reported regarding the EENT system. Derm: No signs and/or symptoms reported regarding the dermatologic system. Musculoskeletal: No signs and/or symptoms reported regarding the musculoskeletal system. 20:04 Reassessment: Dr Ventura to ER to speak to patient about AMA. Pt calmer than previous la4 interaction. Pt told Dr. Ventura "I feel better. I don't like hospitals and I'm ready to go home." Dr. Ventura explained to patient why he needed to be admitted but pt continue to push his desire to leave. Pt leaving AMA. All monitoring and IV to be discontinued. 20:08 Reassessment: Pt upset about how long he has been in the ER. States that he was given la4 medication and he feels better now and wants to go home. Attempted to calm the patient down and let him know that I would contact the hospitalist to come speak to him. Dr. Ventura paged at this time. Vital Signs: 13:02 BP 153 / 97; Pulse 79; Resp 22; Temp 98.4; Pulse Ox 98% on R/A; Weight 82.55 kg; Height cm10 5 ft. 8 in. ; Pain 0/10; 13:16 Pulse 78; Resp 18; Pulse Ox 96% on R/A; Pain 0/10; ld1 13:02 Body Mass Index 27.67 (82.55 kg, 172.72 cm) cm10 13:02 Pain Scale: Adult cm10 13:16 Pain Scale: Adult ld1 ED Course: 12:58 Patient arrived in ED. rg4 13:03 Triage completed. cm10 13:04 Arm band placed on Patient placed in an exam room, on a stretcher. cm10 13:05 Mariela Bear FNP-C is PHCP. snw 13:05 Gian Price MD is Attending Physician. snw 13:16 Tara Aparicio, RN is Primary Nurse. ld1 13:16 Patient has correct armband on for positive identification. Placed in gown. Bed in low ld1 position. Call light in reach. Side rails up X2. orthopedic mechanic on. Pulse ox on. NIBP on. Door closed. Noise minimized. Warm blanket given. 13:16 No provider procedures requiring assistance completed. Inserted saline lock: 20 gauge ld1 in left antecubital area, using aseptic technique. Blood collected. Patient maintains SpO2 saturation greater than 95% on room air. 13:20 EKG done, by ED staff, reviewed by Mariela VAZQUEZ. mb4 13:33 Basic Metabolic Panel Sent. mb9 13:33 CBC with Diff Sent. mb9 13:33 LFT's Sent. mb9 13:33 Magnesium Sent. mb9 13:33 NT PRO-BNP Sent. mb9 13:33 PT-INR Sent. mb9 13:33 Troponin HS Sent. mb9 13:35 Initial lab(s) drawn, by ED staff, sent to lab. mb4 13:47 XRAY Chest (1 view) In Process Unspecified. EDMS 14:44 Marly Anthony MD is Hospitalizing Provider. snw 15:01 Oneal Yi is Hospitalizing Provider. snw 16:56 Patient admitted, IV remains in place. ld1 19:44 Provided Education on: need for admission. la4 20:14 IV discontinued, intact, bleeding controlled, No redness/swelling at site. Pressure la4 dressing applied. Administered Medications: 13:31 Drug: Aspirin PO Chewable Tablet 324 mg PO once; 81 mg tablets x 4 Route: PO; mb9 14:26 Drug: Decadron - Dexamethasone IVP 10 mg IVP once Route: IVP; Site: left antecubital; ld1 14:27 Drug: Albuterol Inhalation 2.5 mg Inhalation once Route: Inhalation; ld1 Medication: 13:16 VIS not applicable for this client. ld1 Outcome: 14:45 Decision to Hospitalize by Provider. snw 16:56 Admitted to ER Hold. Please see [facility] for further documentation. ld1 16:56 Condition: stable 16:56 Instructed on the need for admit, 20:14 AMA AMA form signed la4 20:14 Patient left the ED. la4 Signatures: Dispatcher [employer] EDMS Mariela Bear, FABRIC PATTERN GRADER-C FABRIC PATTERN GRADER-Csnw Celina Smith rg4 Analilia Quinones mb4 Tara Aparicio, RN RN ld1 Jamie, Ashley Long, RN RN mb9 Caitlin Huertas RN RN cm10 Neo Dinero RN RN la4 Corrections: (The following items were deleted from the chart) 13:04 13:03 Allergies: No Known Allergies; cm10 cm10
--- NOTE | 2023-08-09 14:45 | EDPHYS ---
Physician Documentation [facility] Name: Oneal Llanes Age: 67 yrs Sex: Male : 1955 Arrival Date: 08/09/2023 Time: 12:56 Bed 7 Private MD: ED Physician Gian Price HPI: 08/09 14:45 This 67 yrs old Male presents to ER via Ambulatory with complaints of Chest Pain, snw Breathing Difficulty. 14:45 The patient or guardian reports cough, difficulty breathing. Onset: The snw symptoms/episode began/occurred acutely, 3 day(s) ago, and became worse last night, and became persistent. Associated signs and symptoms: Pertinent positives: chest pain, wheezing, orthopnea, CASTANO. Severity of symptoms: At their worst the symptoms were moderate severe in the emergency department the symptoms are unchanged. It is unknown whether or not the patient has had similar symptoms in the past. The patient has not recently seen a physician. switching PCP to Dr. Rey but has not seen him yet. Historical: - Allergies: 13:03 PENICILLINS; cm10 - PMHx: 13:03 COPD; Hypertensive disorder; Hypercholesterolemia; cm10 - Immunization history:: Adult Immunizations up to date. - Social history:: Smoking status: Patient reports the use of cigarette tobacco products, smokes one pack cigarettes per day. ROS: 14:35 Constitutional: Negative for fever, chills, and weight loss, Eyes: Negative for injury, snw pain, redness, and discharge, ENT: Negative for injury, pain, and discharge, Neck: Negative for injury, pain, and swelling, 14:35 Abdomen/GI: Negative for abdominal pain, nausea, vomiting, diarrhea, and constipation, Back: Negative for injury and pain, : Negative for injury, bleeding, discharge, and swelling, MS/Extremity: Negative for injury and deformity, Skin: Negative for injury, rash, and discoloration, Neuro: Negative for headache, weakness, numbness, tingling, and seizure, Psych: Negative for depression, anxiety, suicide ideation, homicidal ideation, and hallucinations, 14:35 Cardiovascular: Positive for chest pain, orthopnea, 14:35 Respiratory: Positive for cough, dyspnea on exertion, orthopnea, shortness of breath, wheezing, Exam: 14:33 Head/Face: Normocephalic, atraumatic. Eyes: Pupils equal round and reactive to light, snw extra-ocular motions intact. Lids and lashes normal. Conjunctiva and sclera are non-icteric and not injected. Cornea within normal limits. Periorbital areas with no swelling, redness, or edema. ENT: Nares patent. No nasal discharge, no septal abnormalities noted. Tympanic membranes are normal and external auditory canals are clear. Oropharynx with no redness, swelling, or masses, exudates, or evidence of obstruction, uvula midline. Mucous membranes moist. Neck: Trachea midline, no thyromegaly or masses palpated, and no cervical lymphadenopathy. Supple, full range of motion without nuchal rigidity, or vertebral point tenderness. No Meningismus. Chest/axilla: Normal chest wall appearance and motion. Nontender with no deformity. No lesions are appreciated. Cardiovascular: Regular rate and rhythm with a normal S1 and S2. No gallops, murmurs, or rubs. Normal PMI, no JVD. No pulse deficits. 14:33 Back: No spinal tenderness. No costovertebral tenderness. Full range of motion. 14:33 MS/ Extremity: Pulses equal, no cyanosis. Neurovascular intact. Full, normal range of motion. Neuro: Awake and alert, GCS 15, oriented to person, place, time, and situation. Cranial nerves II-XII grossly intact. Motor strength 5/5 in all extremities. Sensory grossly intact. Cerebellar exam normal. Normal gait. Psych: Awake, alert, with orientation to person, place and time. Behavior, mood, and affect are anxious 14:33 Constitutional: The patient appears alert, awake, tearful 14:33 Respiratory: the patient does not display signs of respiratory distress, Respirations: normal, Breath sounds: rhonchi, wheezing: inspiratory expiratory that is moderate, is heard diffusely, 14:33 Abdomen/GI: Inspection: abdomen appears normal, Bowel sounds: normal, Palpation: mild distension, 14:33 Skin: Appearance: Color: evangelist, Temperature: normal temperature, Moisture: dry, Vital Signs: 13:02 BP 153 / 97; Pulse 79; Resp 22; Temp 98.4; Pulse Ox 98% on R/A; Weight 82.55 kg; Height cm10 5 ft. 8 in. ; Pain 0/10; 13:16 Pulse 78; Resp 18; Pulse Ox 96% on R/A; Pain 0/10; ld1 13:02 Body Mass Index 27.67 (82.55 kg, 172.72 cm) cm10 13:02 Pain Scale: Adult cm10 13:16 Pain Scale: Adult ld1 MDM: 13:07 Patient medically screened. sebastian 14:36 Differential diagnosis: viral Infection, bacterial infection. Data reviewed: vital snw signs, nurses notes, lab test result(s), EKG, radiologic studies. I considered the following discharge prescriptions or medication management in the emergency department Medications were administered in the Emergency Department. See MAR. Historians other than the Patient: Spouse/Significant Other: . Counseling: I had a detailed discussion with the patient and/or guardian regarding the historical points, exam findings, and any diagnostic results supporting the discharge/admit diagnosis, the presence of at least one elevated blood pressure reading (>120/80) during this emergency department visit, lab results, radiology results, the need for further work-up and treatment in the hospital. 08/09 13:28 Order name: Basic Metabolic Panel; Complete Time: 14:14 snw 08/09 13:28 Order name: CBC with Diff; Complete Time: 14:14 snw 08/09 13:28 Order name: LFT's; Complete Time: 14:14 snw 08/09 13:28 Order name: Magnesium; Complete Time: 14:14 snw 08/09 13:28 Order name: NT PRO-BNP; Complete Time: 14:14 snw 08/09 13:28 Order name: PT-INR; Complete Time: 14:14 snw 08/09 13:28 Order name: Troponin HS; Complete Time: 14:14 snw 08/09 15:57 Order name: Basic Metabolic Panel EDMS 08/09 15:57 Order name: Basic Metabolic Panel EDMS 08/09 15:57 Order name: Basic Metabolic Panel EDMS 08/09 15:57 Order name: Basic Metabolic Panel EDMS 08/09 15:57 Order name: Basic Metabolic Panel EDMS 08/09 15:57 Order name: Basic Metabolic Panel EDMS 08/09 15:57 Order name: Basic Metabolic Panel EDMS 08/09 15:57 Order name: Basic Metabolic Panel EDMS 08/09 15:57 Order name: CBC with Automated Diff EDMS 08/09 15:57 Order name: CBC with Automated Diff EDMS 08/09 15:57 Order name: CBC with Automated Diff EDMS 08/09 15:57 Order name: CBC with Automated Diff EDMS 08/09 15:57 Order name: CBC with Automated Diff EDMS 08/09 15:57 Order name: CBC with Automated Diff EDMS 08/09 15:57 Order name: CBC with Automated Diff EDMS 08/09 15:57 Order name: CBC with Automated Diff EDMS 08/09 15:57 Order name: Lipid Profile EDMS 08/09 15:57 Order name: Lipid Profile EDMS 08/09 15:57 Order name: Magnesium EDMS 08/09 15:57 Order name: Magnesium EDMS 08/09 15:57 Order name: Magnesium EDMS 08/09 15:57 Order name: Magnesium EDMS 08/09 15:57 Order name: Magnesium EDMS 08/09 15:57 Order name: Magnesium EDMS 08/09 15:57 Order name: Magnesium EDMS 08/09 15:57 Order name: Magnesium EDMS 08/09 15:57 Order name: Phosphorus EDMS 08/09 15:57 Order name: Phosphorus EDMS 08/09 15:57 Order name: Phosphorus EDMS 08/09 15:57 Order name: Phosphorus EDMS 08/09 15:57 Order name: Phosphorus EDMS 08/09 15:57 Order name: Phosphorus EDMS 08/09 15:57 Order name: Phosphorus EDMS 08/09 15:57 Order name: Phosphorus EDMS 08/09 15:57 Order name: Troponin High Sensitivity EDMS 08/09 15:57 Order name: Troponin High Sensitivity EDMS 08/09 15:57 Order name: Troponin High Sensitivity EDMS 08/09 15:57 Order name: Urinalysis w/ reflexes EDMS 08/09 13:28 Order name: XRAY Chest (1 view); Complete Time: 14:14 w 08/09 13:28 Order name: EKG; Complete Time: 13:29 08/09 15:57 Order name: CONS Physician Consult EDMS 08/09 13:28 Order name: Cardiac monitoring; Complete Time: 13:28 08/09 13:28 Order name: EKG - Nurse/Tech; Complete Time: 13:28 08/09 13:28 Order name: IV Saline Lock; Complete Time: 13:28 08/09 13:28 Order name: Labs collected and sent; Complete Time: 13:29 snw 08/09 13:28 Order name: O2 Per Protocol; Complete Time: 13:29 snw 08/09 13:28 Order name: O2 Sat Monitoring; Complete Time: 13:29 snw Administered Medications: 13:31 Drug: Aspirin PO Chewable Tablet 324 mg PO once; 81 mg tablets x 4 Route: PO; mb9 14:26 Drug: Decadron - Dexamethasone IVP 10 mg IVP once Route: IVP; Site: left antecubital; ld1 14:27 Drug: Albuterol Inhalation 2.5 mg Inhalation once Route: Inhalation; ld1 Disposition Summary: 08/09/23 20:00 Left Against Medical Advice Notes: Location: Home(08/09/23 20:00) as6 Condition: Stable(08/09/23 20:00) as6 Signatures: Dispatcher [employer] EDMS Gian Price MD MD cha Waters, Shelly, FLIGHT SERVICE AGENT-C FLIGHT SERVICE AGENT-Csnw Yudith Quinones RN RN hb Tara Aparicio RN RN ld1 Alex Em RN RN as6 Ashley Ayala RN RN mb9 Caitlin Huertas, RN RN cm10 Corrections: (The following items were deleted from the chart) 13:04 13:03 Allergies: No Known Allergies; cm10 cm10 15:01 14:45 Marly Anthony snw snw 16:11 14:45 Telemetry/MedSurg (observation) snw hb 16:11 14:45 snw hb 19:15 16:11 [facility] ER HOLD hb as6 19:15 16:11 ERHOLD- hb as6 19:58 19:15 220 as6 as6 20:00 14:45 Observation snw as6 20:00 14:45 Stable snw as6 20:00 14:45 new snw as6 20:00 14:45 are unchanged snw as6 20:00 14:45 Standard snw as6 20:00 14:45 Chest pain, unspecified snw as6 20:00 14:45 COPD/ Chronic obstructive pulmonary disease with (acute) exacerbation snw as6 20:00 14:45 Abnormal electrocardiogram [ECG] [EKG] snw as6 20:00 15:01 Oneal Yi snw as6 20:00 19:15 Telemetry/MedSurg (observation) as6 as6 20:00 19:58 as6 as6
[2023-08-09] MEDS ORDERED: AZITHROMYCIN IV 500 MG in NA CHLORIDE 0.9% 250 ML IVPB SCH (16:04)
[2023-08-09 16:23] VITALS: BMI 27.0
--- NOTE | 2023-08-09 16:34 | P.HP ---
Patient History Date of Service: 08/09/23 Reason for admission: Shortness of breath History of Present Illness: 67-year-old gentleman with a history of hypertension and COPD presented to the emergency department due to intermittent anterior chest pain. Patient reports shortness of breath of about 2 weeks duration, worse with laying flat. He therefore brought wedge pillow so he can sleep propped up. He reported experiencing wheezing today. He relates his chest pain to return of heavy obje cts during work. He reports remote cardiac workup in 2012 and was told he has coronary artery disease. In the ED, chest x-ray showed no acute disease. EKG showed T wave inversion in V6. Troponin negative, other lab unremarkable. Patient was given urgent treatment and IV steroids for COPD exacerbation. He has been stable on room air. He is hospitalized for further management. Allergies No Known Drug Allergies Allergy (Unverified 08/15/14 05:22) Unknown - Past Medical/Surgical History Has patient received pneumonia vaccine in the past: Yes -: Hypertension -: COPD - Family History Family History: Reviewed- Non-Contributory - Social History Smoking Status: Current every day smoker CD- Drugs: No Place of Residence: Home Review of Systems Other: Patient has orthopnea, no paroxysmal nocturnal dyspnea. Reports intermittent nonproductive cough. Denies any abdominal pain or diarrhea or nausea or vomiting. Except as documented, all other systems reviewed and negative. Physical Examination - Physical Exam General: Alert, In no apparent distress, Oriented x3 HEENT: Mucous membr. moist/pink Neck: Supple, JVD not distended Respiratory: Normal air movement, Diminished Cardiovascular: No edema, Regular rate/rhythm, Normal S1 S2 Gastrointestinal: Normal bowel sounds, Soft and benign, Non-distended, No tenderness Musculoskeletal: No swelling, No tenderness Integumentary: No rashes, No cyanosis Neurological: Normal speech, Normal strength at 5/5 x4 extr Lymphatics: No axilla or inguinal lymphadenopathy - Studies Laboratory Data (last 24 hrs) 08/09/23 08/09/23 08/09/23 13:23 13:23 13:23 WBC 10.30 Hgb 12.9 L Hct 38.1 L Plt Count 262 PT 12.9 H INR 1.18 Sodium 138 Potassium 3.9 BUN 13 Creatinine 0.99 Glucose 103 Magnesium 2.2 Total Bilirubin 0.4 AST 15 ALT 19 Alkaline Phosphatase 78 Assessment and Plan - Problems (Diagnosis) (1) Chest pain Current Visit: Yes Status: Acute (2) COPD exacerbation Current Visit: Yes Status: Acute (3) Abnormal EKG Current Visit: Yes Status: Acute (4) Hypertension Current Visit: Yes Status: Acute (5) Orthopnea Current Visit: Yes Status: Acute - Plan Chest pain/Abnormal EKG Patient under observation on the medical floor Troponin negative. Continue to trend troponin Serial EKG Echocardiogram Cardiology consult pending troponin result. COPD exacerbation Treated with scheduled nebulizer treatments and steroids Chest x-ray is clear, no significant sputum production and no indication for antibiotics. Essential Hypertension Resume home medications. DVT Prophylaxis: Lovenox - Advance Directives Does patient have a Living Will: No Does patient have a Durable POA for Healthcare: No
[2023-08-09] MEDS ORDERED: AZITHROMYCIN 500 MG INJ IVPB ONE (17:11)
[2023-08-09] MEDS ORDERED: NA CHLORIDE 0.9% 250 ML ONE (17:11)
[2023-08-09] MEDS ORDERED: METHYLPREDNISOLONE 125 MG INJ ONE (17:11)
[2023-08-09] MEDS ORDERED: IPRATROPIUM BROM 0.5MG/2.5ML NEB SCH (19:00)
[2023-08-09] MEDS ORDERED: ALBUTEROL 2.5 MG/3 ML NEB SOL NEB SCH (19:00)
[2023-08-09] MEDS ORDERED: METHYLPREDNISOLONE 125 MG INJ IV SCH (20:00)
[2023-08-09 20:51] VITALS: O2SAT 97
[2023-08-09 21:10] VITALS: BP 153/97; TEMP 98.4
[2023-08-10] MEDS ORDERED: ENOXAPARIN 40 MG/0.4 ML SQ SCH (09:00)
--- NOTE | 2023-08-10 16:59 | EKG ---
Test Date: 2023-08-09 Test Time: 13:17:43 [place]: MB MEASUREMENT RESULTS: Intervals: Rate: 71 PA: 154 QRSD: 90 QT: 406 QTc: 441 [place]: P: 66 PA: 154 QRS: 13 T: -7 INTERPRETIVE STATEMENTS: Normal sinus rhythm Nonspecific T wave abnormality Abnormal ECG Compared to ECG 08/15/2014 03:46:37 T-wave abnormality now present Electronically Signed On 08-10-23 16:55:59 MED AIDE by Michel Grier
--- NOTE | 2023-08-10 20:32 | P.DS ---
Admission Date: 08/09/23 Discharge Date: 08/10/23 Disposition: AMA-LEFT AGAINST MEDICAL ADVIC Reason for Admission: Shortness of breath - Problems (1) Chest pain Status: Acute (2) COPD exacerbation Status: Acute (3) Abnormal EKG Status: Acute (4) Hypertension Status: Acute (5) Orthopnea Status: Acute Brief History of Present Illness: 67-year-old gentleman with a history of hypertension and COPD presented to the emergency department due to intermittent anterior chest pain. Patient reports shortness of breath of about 2 weeks duration, worse with laying flat. He therefore brought wedge pillow so he can sleep propped up. He reported experiencing wheezing today. He relates his chest pain to return of heavy objects during work. He reports remote cardiac workup in 2012 and was told he has coronary artery disease. In the ED, chest x-ray showed no acute disease. EKG showed T wave inversion in V6. Troponin negative, other lab unremarkable. Patient was given urgent treatment and IV steroids for COPD exacerbation. He has been stable on room air. He is hospitalized for further management. Hospital Course: Chart reviewed and noted patient signed out AGAINST MEDICAL ADVICE. I was not made aware and was not available to convince patient to stay for treatment. Vital Signs/Physical Exam: Temp Pulse Resp BP Pulse Ox 98.4 F 78 18 153/97 H 08/09/23 13:02 08/09/23 13:16 08/09/23 13:16 08/09/23 13:02 Laboratory Data at Discharge: WBC Cancelled 08/10/23 05:00 Hgb Cancelled 08/10/23 05:00 Hct Cancelled 08/10/23 05:00 Plt Count Cancelled 08/10/23 05:00 PT 12.9 SECONDS (9.5-12.5) H 08/09/23 13:23 INR 1.18 08/09/23 13:23 Sodium Cancelled 08/10/23 05:00 Potassium Cancelled 08/10/23 05:00 BUN Cancelled 08/10/23 05:00 Creatinine Cancelled 08/10/23 05:00 Glucose Cancelled 08/10/23 05:00 Phosphorus Cancelled 08/10/23 05:00 Magnesium Cancelled 08/10/23 05:00 Total Bilirubin 0.4 mg/dL (0.2-1.0) 08/09/23 13:23 AST 15 U/L (15-37) 08/09/23 13:23 ALT 19 U/L (16-61) 08/09/23 13:23 Alkaline Phosphatase 78 U/L (45-117) 08/09/23 13:23 Triglycerides Cancelled 08/10/23 05:00 Cholesterol Cancelled 08/10/23 05:00 HDL Cholesterol Cancelled 08/10/23 05:00 Cholesterol/HDL Ratio Cancelled 08/10/23 05:00 Followup: EDGARD RENE [Primary Care Provider] -
== END 2023-08-10 01:33 | disposition left against medical advice (07) ==
LOC: ER 12:56 → ERHOLD 16:07 → 2ND 19:35
PROVIDERS: ADMIT Internal Medicine; ATTEND Internal Medicine
DX: J44.1 Chronic obstructive pulmonary disease with (acute) exacerbation (principal); R07.9 Chest pain, unspecified; R94.31 Abnormal electrocardiogram [ECG] [EKG]; R06.01 Orthopnea; I10 Essential (primary) hypertension; I25.10 Atherosclerotic heart disease of native coronary artery without angina pectoris; F17.210 Nicotine dependence, cigarettes, uncomplicated; Z53.29 Procedure and treatment not carried out because of patient's decision for other reasons
CPT/HCPCS: 93005; 85025; 80048; 36415; 83735; 85610; 80076; 84484; 83880; 71045; 96374; 99285; J7613; J1100; J2930; J7050; G0378 ×4; J7644